=== PATIENT | female | born 1995 | race Caucasian/White ===

== ENCOUNTER → 2019-04-15 | Outpatient (CLI) | payer OTHER ==
[2019-04-15 11:27] LABS: Source, Urine Clean Catch
[2019-04-15 12:26] LABS: Appearance, Urine Clear (Clear); Bilirubin, Urine Neg (Neg); Blood, Urine Neg (Neg); Color, Urine Yellow (P-Yellow); Glucose Qualitative, Urine Neg (Neg); Ketones, Urine Neg (Neg); Leukocyte Esterase, Urine 2+ (Neg); Nitrite, Urine Neg (Neg); Protein, Urine Neg (Neg); Specific Gravity, Urine 1.005 (1.003-1.022); Urobilinogen, Urine NORM (Normal)
[2019-04-15 12:39] LABS: Bacteria Rare /hpf; Red Blood Cells, Urine 0-2 /hpf (0-2); Squamous Epithelial Cells Mod /hpf (Few)
[2019-04-15 18:05] LABS: BASOPHILS ABSOLUTE AUTO 0.05 K/mm3 (0.00-0.23); BASOPHILS PERCENT AUTO 0 % (0-2); EOSINOPHILS ABSOLUTE AUTO 0.14 K/mm3 (0.00-0.68); EOSINOPHILS PERCENT AUTO 1 % (0-6); Hematocrit 40.1 % (33.0-51.0); Hemoglobin 13.4 g/dL (11.5-16.0); IMMATURE GRAN ABSOLUTE AUTO 0.03 K/mm3 (0.00-0.10); IMMATURE GRAN PERCENT AUTO 0 % (0-1); LYMPHOCYTES PERCENT AUTO 13 % (21-46); MONOCYTES PERCENT AUTO 7 % (4-13); Mean Corpuscular HGB 29.6 pg (26.0-34.0); Mean Corpuscular HGB Conc 33.4 g/dL (31.5-36.5); Mean Corpuscular Volume 89 fL (80-100); Mean Platelet Volume 10.9 fL (9.1-12.4); NEUTROPHILS ABSOLUTE AUTO 9.41 K/mm3 (1.96-9.15); NEUTROPHILS PERCENT AUTO 79 % (41-73); Platelet Count 289 K/mm3 (150-400); RDW Coefficient Variation 13.7 % (11.7-14.2); RDW Standard Deviation 44.3 fL (35.1-46.3); Red Blood Cell Count 4.52 M/mm3 (3.80-5.20); White Blood Cell Count 11.93 K/mm3 (4.00-11.30)
[2019-04-17 00:07] LABS: HBSAG SCREEN Negative (Negative)
== END | disposition home or self-care (01) ==
LOC: LAB 10:39 → LAB SHORT 10:39
PROVIDERS: Advanced Practice Midwife
DX: Z34.80 Encounter for supervision of other normal pregnancy, unspecified trimester (principal)
CPT/HCPCS: 36415; 80055; 81001; 84443; 87086

== ENCOUNTER → 2019-05-14 | Outpatient (CLI) | payer OTHER ==
[2019-05-16 18:06] LABS: CHLAMYDIA TRACHOMATIS, NAA Negative (Negative); NEISSERIA GONORRHOEAE, NAA Negative (Negative)
== END | disposition home or self-care (01) ==
LOC: LAB SHORT 13:59 → LAB 13:59
PROVIDERS: Advanced Practice Midwife
DX: Z11.3 Encounter for screening for infections with a predominantly sexual mode of transmission (principal)
CPT/HCPCS: 87491; 87591

== ENCOUNTER 2019-10-29 23:44 | Inpatient (IN) | payer OTHER ==
[~2019-10-29] VITALS: Ht 165.1 cm; Wt 70.5 kg
[2019-10-30 00:21] LABS: BASOPHILS ABSOLUTE AUTO 0.03 K/mm3 (0.00-0.23); BASOPHILS PERCENT AUTO 0 % (0-2); EOSINOPHILS ABSOLUTE AUTO 0.09 K/mm3 (0.00-0.68); EOSINOPHILS PERCENT AUTO 1 % (0-6); Hematocrit 36.4 % (33.0-51.0); IMMATURE GRAN ABSOLUTE AUTO 0.17 K/mm3 (0.00-0.10); IMMATURE GRAN PERCENT AUTO 1 % (0-1); LYMPHOCYTES ABSOLUTE AUTO 1.79 K/mm3 (0.84-5.20); LYMPHOCYTES PERCENT AUTO 15 % (21-46); MONOCYTES ABSOLUTE AUTO 0.74 K/mm3 (0.16-1.47); MONOCYTES PERCENT AUTO 6 % (4-13); Mean Corpuscular HGB 29.3 pg (26.0-34.0); Mean Corpuscular Volume 89 fL (80-100); Mean Platelet Volume 10.2 fL (9.1-12.4); NEUTROPHILS ABSOLUTE AUTO 9.33 K/mm3 (1.96-9.15); NEUTROPHILS PERCENT AUTO 77 % (41-73); Platelet Count 256 K/mm3 (150-400); RDW Standard Deviation 46.7 fL (35.1-46.3); Red Blood Cell Count 4.09 M/mm3 (3.80-5.20); White Blood Cell Count 12.15 K/mm3 (4.00-11.30)
[2019-10-30] MEDS ORDERED: IRON150C (00:22)
[2019-10-30] MEDS ORDERED: PRENATAL TABLE1 EAC2 (00:22)
[2019-10-30] MEDS ORDERED: DOC250 (00:23)
--- NOTE | 2019-10-30 08:53 | NUR ---
PT ENCOURAGED TO EAT AND REST THIS EARLY PART OF LABOR COULD CONTINUE FOR A WHILE. PER CAMI FINNEGAN CNM, THE PLAN IS TO CONTINUE IS BECAUSE NB IS NOT 37 WEEKS GESTATION. PT OK WITH PLAN.
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
[2019-10-30] MEDS ORDERED: BENADRYL25 MG PO (17:24)
== END 2019-10-30 17:30 | disposition home or self-care (01) | DRG 833 ==
LOC: OBS 23:44 → BC 23:51 → OBS 10-30 00:10 → BC 10-30 00:12
PROVIDERS: ADMIT Advanced Practice Midwife
DX: O60.03 Preterm labor without delivery, third trimester (principal); Z3A.36 36 weeks gestation of pregnancy
CPT/HCPCS: 36415; 85025; 87081; 87653; J0290; J2590; J7120; Q0163

== ENCOUNTER 2019-11-14 16:21 | Inpatient (IN) | payer OTHER ==
[~2019-11-14] VITALS: Ht 165.1 cm; Wt 72.5 kg
[~2019-11-14 16:21] MED LIST: BENADRYL25 MG PO; DOC250; IRON150C; PRENATAL TABLE1 EAC2
[2019-11-14 16:54] LABS: BASOPHILS ABSOLUTE AUTO 0.03 K/mm3 (0.00-0.23); BASOPHILS PERCENT AUTO 0 % (0-2); EOSINOPHILS ABSOLUTE AUTO 0.06 K/mm3 (0.00-0.68); EOSINOPHILS PERCENT AUTO 1 % (0-6); Hematocrit 36.8 % (33.0-51.0); Hemoglobin 12.3 g/dL (11.5-16.0); IMMATURE GRAN ABSOLUTE AUTO 0.06 K/mm3 (0.00-0.10); IMMATURE GRAN PERCENT AUTO 1 % (0-1); LYMPHOCYTES ABSOLUTE AUTO 1.36 K/mm3 (0.84-5.20); LYMPHOCYTES PERCENT AUTO 15 % (21-46); MONOCYTES ABSOLUTE AUTO 0.69 K/mm3 (0.16-1.47); MONOCYTES PERCENT AUTO 7 % (4-13); Mean Corpuscular HGB 30.2 pg (26.0-34.0); Mean Corpuscular HGB Conc 33.4 g/dL (31.5-36.5); Mean Corpuscular Volume 90 fL (80-100); Mean Platelet Volume 10.8 fL (9.1-12.4); NEUTROPHILS ABSOLUTE AUTO 7.17 K/mm3 (1.96-9.15); NEUTROPHILS PERCENT AUTO 77 % (41-73); Platelet Count 236 K/mm3 (150-400); RDW Coefficient Variation 15.5 % (11.7-14.2); RDW Standard Deviation 51.4 fL (35.1-46.3); Red Blood Cell Count 4.07 M/mm3 (3.80-5.20); White Blood Cell Count 9.37 K/mm3 (4.00-11.30)
[2019-11-14] MEDS ORDERED: ACET325 PO (16:57)
[2019-11-15 04:24] LABS: Source, Urine Catheter
[2019-11-15 04:26] LABS: Bilirubin, Urine Neg (Neg); Blood, Urine 5+ (Neg); Glucose Qualitative, Urine 2+ (Neg); Ketones, Urine 1+ (Neg); Leukocyte Esterase, Urine Neg (Neg); Nitrite, Urine Neg (Neg); Protein, Urine 1+ (Neg); Urobilinogen, Urine NORM (Normal)
[2019-11-15 04:33] LABS: Appearance, Urine Clear (Clear); Color, Urine Yellow (P-Yellow)
[2019-11-15 04:34] LABS: Bacteria Not Seen /hpf; Red Blood Cells, Urine TNTC /hpf (0-2); Squamous Epithelial Cells Rare /hpf (Few); White Blood Cells, Urine Rare /hpf (0-5)
[2019-11-15 06:36] LABS: Hematocrit 32.4 % (33.0-51.0); Hemoglobin 10.7 g/dL (11.5-16.0); Mean Corpuscular HGB 30.1 pg (26.0-34.0); Mean Corpuscular Volume 91 fL (80-100); Mean Platelet Volume 10.8 fL (9.1-12.4); Platelet Count 185 K/mm3 (150-400); RDW Coefficient Variation 15.5 % (11.7-14.2); RDW Standard Deviation 51.4 fL (35.1-46.3); Red Blood Cell Count 3.56 M/mm3 (3.80-5.20); White Blood Cell Count 13.58 K/mm3 (4.00-11.30)
[2019-11-15] MEDS ORDERED: IBUP800 PO (14:22)
[2019-11-15] MEDS ORDERED: Percocet 5-3251 EACH PO (14:22)
--- NOTE | 2019-11-15 17:12 | NUR ---
ASSIST MOM REPORTS SORT NIPPLES. NIPPLES ARE INTACT BRIGHT PINK IN COLOR. MOM ADMITS THAT HER NIPPLES ARE VERY SENSETIVE. DEMONSTRATED LAID BACK POSITION AND CROSS LATCH, DEMONSTRATED CHIN TUG FOR A MORE OPEN LATCH. DISCUSSED NEW BEGINNIGS AND NEW START BOOK.
== END 2019-11-15 18:25 | disposition home or self-care (01) | DRG 807 ==
LOC: BC 16:21
PROVIDERS: ADMIT Advanced Practice Midwife
PROC: 10E0XZZ Delivery of Products of Conception, External Approach (ICD-10-PCS; principal; 2019-11-14)
PROC: 0KQM0ZZ Repair Perineum Muscle, Open Approach (ICD-10-PCS; 2019-11-14)
PROC: 3E0R3BZ Introduction of Anesthetic Agent into Spinal Canal, Percutaneous Approach (ICD-10-PCS; 2019-11-14)
DX: O99.824 Streptococcus B carrier state complicating childbirth (principal); Z37.0 Single live birth; O70.1 Second degree perineal laceration during delivery; Z3A.38 38 weeks gestation of pregnancy
CPT/HCPCS: 36415; 51702; 81001; 85025; 85027; 86850; 86900; 86901; J0290; J1885; J2001; J2590; J3010; J7120